=== PATIENT | male | born 1955 | race Caucasian/White ===

== ENCOUNTER 2022-03-26 14:03 | Emergency (ER) | payer BC ==
[2022-03-26 14:34] VITALS: TEMP 99.2; BMI 24.3
[2022-03-26] MEDS ORDERED: ALBUTEROL SO4 2.5/IPRATROPIUM 0.5 INH SOL 3 ML VIAL.NEB. NEB ONE ×3 (16:38→19:56)
[2022-03-26] MEDS: ALBUTEROL SO4 2.5/IPRATROPIUM 0.5 INH SOL 3 ML VIAL.NEB. NEB SCH ×2 (16:43→16:44)
[2022-03-26 18:04] LABS: BASO % 0.7 % (0-2.0); EOS % 9.8 % (0-4.5); HEMOGLOBIN 12.6 GM/dL (11.7-16.9); LYMPH % 23.3 % (8-40); MCH 29.1 pg (25.7-33.7); MCHC 32.4 g/dl (32.0-35.9); MEAN CELL VOLUME 89.8 fl (80-96); MEAN PLT VOLUME 8.5 fl (7.5-11.1); MONO % 13.8 % (3.8-10.2); NEUT % 52.4 % (42.8-82.8); PLATELET COUNT 404 10^3/uL (134-434); RBC 4.34 M/mm3 (4.00-5.60); RDW 14.9 % (11.9-15.9); WHITE BLOOD COUNT 13.5 K/mm3 (4.0-10.0)
[2022-03-26 18:09] LABS: CALCIUM 8.7 mg/dL (8.5-10.1)
[2022-03-26 18:10] LABS: ALBUMIN 3.1 g/dl (3.4-5.0)
[2022-03-26 18:13] LABS: CREATININE 1.1 mg/dL (0.55-1.3)
[2022-03-26 18:14] LABS: BILIRUBIN,TOTAL 0.5 mg/dL (0.2-1); TOT PROT 6.2 g/dl (6.4-8.2)
[2022-03-26 18:18] LABS: N-TERMINAL BNP 139.3 pg/ml (5-125)
[2022-03-26] MEDS ORDERED: DEXAMETHASONE SOD PHOSPHATE 10 MG/1 ML VIAL IVPUSH ONE (18:38)
[2022-03-26] MEDS ORDERED: DEXAMETHASONE SOD PHOSPHATE 10 MG/1 ML VIAL ONE (19:55)
[2022-03-26] MEDS ORDERED: ALBUTEROL SO4 0.083% IH SOL 2.5 MG/3 ML VIAL.NEB. NEB ONE ×4 (19:57→21:00)
[2022-03-26 20:00] VITALS: BP 123/77; PULSE 100; RESP 18
== END 2022-03-26 23:50 | disposition admitted as inpatient to this hospital (09) ==
LOC: JER 14:03
PROC: 3E033GC Introduction of Other Therapeutic Substance into Peripheral Vein, Percutaneous Approach (ICD-10-PCS; principal; 2022-03-26)
PROC: 3E0F7GC Introduction of Other Therapeutic Substance into Respiratory Tract, Via Natural or Artificial Opening (ICD-10-PCS; 2022-03-26)
DX: R06.02 Shortness of breath (principal)
CPT/HCPCS: 0241U-QW; 36415; 71045-TC-FY; 71275-TC; 80053; 83880; 84484; 85025; 93005; 93010; 99285-25; J1100; Q9967

== ENCOUNTER 2023-07-12 19:02 | Emergency (ER) | payer BC ==
[2023-07-12 19:10] VITALS: BP 123/69; PULSE 76; RESP 18; TEMP 97.7; BMI 25.4
[2023-07-12] MEDS ORDERED: KETOROLAC TROMETHAMINE 15 MG/ML VIAL ONE (19:52)
[2023-07-12] MEDS: KETOROLAC TROMETHAMINE 15 MG/ML VIAL IM ONE (19:55)
== END 2023-07-12 23:06 | disposition home or self-care (01) ==
LOC: JERFT 19:02
PROC: 3E0233Z Introduction of Anti-inflammatory into Muscle, Percutaneous Approach (ICD-10-PCS; principal; 2023-07-12)
DX: S80.02XA Contusion of left knee, initial encounter (principal); M25.562 Pain in left knee; M25.462 Effusion, left knee; W22.8XXA Striking against or struck by other objects, initial encounter; Y93.01 Activity, walking, marching and hiking; Y92.009 Unspecified place in unspecified non-institutional (private) residence as the place of occurrence of the external cause
CPT/HCPCS: 73562-TC-LT-FY; 99284-25